=== PATIENT | male | born 1985 | race Caucasian/White ===

== ENCOUNTER → 2017-02-24 | Outpatient (CLI) | payer OTHER ==
[2017-02-24 08:38] LABS: HEMOGLOBIN 13.3 gm/dl (14.0-17.5); RED BLOOD COUNT 4.32 M/UL (4.20-5.50); WHITE BLOOD COUNT 13.5 K/UL (4.5-11.0)
[2017-02-24 08:59] LABS: BUN/CREATININE RATIO 29 (0-10); GAMMA GLUTAMYL TRANSPEPTIDASE 376 U/L (7-64)
== END ==
LOC: LAB 07:57
PROVIDERS: Internal Medicine Pulmonary Disease
DX: Z94.2 Lung transplant status (principal); Z78.9 Other specified health status; A04.7 Enterocolitis due to Clostridium difficile
CPT/HCPCS: 36415; 80048; 80076; 82465; 82977; 83615; 84550; 85025

== ENCOUNTER → 2017-03-17 | Outpatient (CLI) | payer OTHER ==
[2017-03-17 09:39] LABS: BUN/CREATININE RATIO 26 (0-10); GAMMA GLUTAMYL TRANSPEPTIDASE 174 U/L (7-64)
[2017-03-17 09:58] LABS: HEMOGLOBIN 13.1 gm/dl (14.0-17.5); RED BLOOD COUNT 4.19 M/UL (4.20-5.50); WHITE BLOOD COUNT 13.3 K/UL (4.5-11.0)
== END ==
LOC: LAB 08:35
PROVIDERS: Internal Medicine Pulmonary Disease
DX: R19.7 Diarrhea, unspecified (principal); Z79.899 Other long term (current) drug therapy
CPT/HCPCS: 36415; 80048; 80076; 82465; 82977; 83615; 84550; 85025

== ENCOUNTER → 2017-04-02 | Outpatient (CLI) | payer OTHER ==
[2017-04-02 08:45] LABS: HEMOGLOBIN 12.9 gm/dl (14.0-17.5); RED BLOOD COUNT 4.14 M/UL (4.20-5.50); WHITE BLOOD COUNT 9.1 K/UL (4.5-11.0)
[2017-04-02 09:29] LABS: BUN/CREATININE RATIO 22 (0-10)
== END ==
LOC: LAB 08:01
PROVIDERS: Internal Medicine Pulmonary Disease
DX: Z94.2 Lung transplant status (principal); A04.7 Enterocolitis due to Clostridium difficile
CPT/HCPCS: 36415; 80048; 80076; 82465; 82977; 83615; 84550; 85025

== ENCOUNTER → 2017-05-05 | Outpatient (CLI) | payer OTHER ==
[2017-05-05 09:50] LABS: RED BLOOD COUNT 4.19 M/UL (4.20-5.50); WHITE BLOOD COUNT 8.2 K/UL (4.5-11.0)
[2017-05-05 10:08] LABS: BUN/CREATININE RATIO 22 (0-10)
== END ==
LOC: LAB 08:37
PROVIDERS: Internal Medicine Pulmonary Disease
DX: Z48.24 Encounter for aftercare following lung transplant (principal)
CPT/HCPCS: 36415; 80048; 80076; 82465; 82977; 83615; 84550; 85025

== ENCOUNTER → 2017-05-12 | Outpatient (CLI) | payer OTHER ==
[2017-05-12 09:32] LABS: HEMOGLOBIN 13.6 gm/dl (14.0-17.5); RED BLOOD COUNT 4.37 M/UL (4.20-5.50)
[2017-05-12 09:55] LABS: BUN/CREATININE RATIO 27 (0-10)
== END ==
LOC: LAB 08:37
PROVIDERS: Internal Medicine Pulmonary Disease
DX: Z48.24 Encounter for aftercare following lung transplant (principal)
CPT/HCPCS: 36415; 80048; 80076; 85025

== ENCOUNTER → 2020-11-23 | Outpatient (CLI) | payer OTHER | LOC: LAB 13:21 | PROVIDERS: Internal Medicine Pulmonary Disease | DX: Z48.24 Encounter for aftercare following lung transplant (principal); A49.02 Methicillin resistant Staphylococcus aureus infection, unspecified site; A04.72 Enterocolitis due to Clostridium difficile, not specified as recurrent; Z78.9 Other specified health status; Z90.2 Acquired absence of lung [part of] | CPT/HCPCS: 36415; 80048 ==

== ENCOUNTER → 2021-04-10 | Outpatient (CLI) | payer OTHER ==
[2021-04-10 09:09] LABS: RED BLOOD COUNT 4.28 M/UL (4.20-5.50); WHITE BLOOD COUNT 7.2 K/UL (4.5-11.0)
== END ==
LOC: LAB 07:45
PROVIDERS: Internal Medicine Pulmonary Disease
DX: Z48.24 Encounter for aftercare following lung transplant (principal); Z94.2 Lung transplant status; A49.02 Methicillin resistant Staphylococcus aureus infection, unspecified site; A04.72 Enterocolitis due to Clostridium difficile, not specified as recurrent; Z16.24 Resistance to multiple antibiotics
CPT/HCPCS: 36415; 80048; 83735; 85025